=== PATIENT | female | born 1970 | race Caucasian/White ===

== ENCOUNTER 2016-12-08 08:37 | Emergency (ER) | payer OTHER ==
[~2016-12-08] VITALS: Ht 170.2 cm; Wt 57.6 kg
[2016-12-08] MEDS ORDERED: OMEP20TA20 PO (08:50)
[2016-12-08] MEDS: ACETAMINOPHEN 325 MG TABLET PO ONE (09:10)
[2016-12-08] MEDS: IBUPROFEN 200 MG TABLET PO ONE (09:11)
[2016-12-08] MEDS ORDERED: ACETAMINOPHEN ES 500 MG TABLET ONE (09:17)
--- NOTE | 2016-12-08 09:17 | NUR ---
PATIENT WAS SEEN BY MD. MEDS GIVEN ORDERED. XRAY BEING DONE NOW.
[2016-12-08] MEDS ORDERED: IBUPROFEN 600 MG TABLET ONE (09:18)
--- NOTE | 2016-12-08 09:52 | NUR ---
DC AND FOLLOW UP INSTRUCTIONS GIVEN AND EXPLAINED TO PATIENT WHO STATES SHE UNDERSTANDS ALL INSTRUCTIONS.
== END 2016-12-08 09:57 | disposition home or self-care (01) ==
LOC: ER 08:37
DX: S16.1XXA Strain of muscle, fascia and tendon at neck level, initial encounter (principal); K21.9 Gastro-esophageal reflux disease without esophagitis; V43.62XA Car passenger injured in collision with other type car in traffic accident, initial encounter; Y93.89 Activity, other specified; Y92.410 Unspecified street and highway as the place of occurrence of the external cause; Y99.9 Unspecified external cause status
CPT/HCPCS: 73030; 99284; A4663